=== PATIENT | female | born 1990 | race Two or more races ===

== ENCOUNTER 2017-09-22 16:13 | Outpatient (CLI) | payer MEDICAID | END 2017-09-22 18:35 | disposition home or self-care (01) | LOC: OBT 16:13 → L-D 16:14 → OBT 18:35 | DX: O62.9 Abnormality of forces of labor, unspecified (principal); Z3A.37 37 weeks gestation of pregnancy | CPT/HCPCS: 76818 ==

== ENCOUNTER 2017-10-14 22:39 | Inpatient (IN) | payer MEDICAID ==
[2017-10-14] MEDS ORDERED: LACTATED RINGER'S 1,000 ML IV ×2 (23:53)
[2017-10-15] MEDS ORDERED: BUTORPHANOL 2 MG INJ IV
[2017-10-15] MEDS ORDERED: BUTORPHANOL 1 MG INJ IV
[2017-10-15] MEDS ORDERED: LIDOCAINE 1% (MPF) 30 ML INJ INJ
[2017-10-15] MEDS: LACTATED RINGER'S 1,000 ML IV ×4 (00:44→10:52)
[2017-10-15 00:56] LABS: WHITE BLOOD COUNT 10.6 10^3/ul (4.8-10.8)
[2017-10-15 00:56] LABS: ADD MAN DIFF? NO; BASOPHIL # 0.1 10^3/ul (0.0-0.1); BASOPHILS % 0.7 % (0.0-2.0); EOSINOPHILS # 0.1 10^3/ul (0.0-0.5); EOSINOPHILS % 0.8 % (0.0-7.0); HEMATOCRIT 40.4 % (37.0-47.0); HEMOGLOBIN 14.1 g/dl (12.0-16.0); LYMPHOCYTES # 2.1 10^3/ul (0.8-2.9); LYMPHOCYTES % 19.7 % (15.0-51.0); MEAN CORPUSCULAR HEMOGLOBIN 29.2 pg (29.0-33.0); MEAN CORPUSCULAR HGB CONC 34.9 g/dl (32.0-37.0); MEAN CORPUSCULAR VOLUME 83.6 fl (82.0-101.0); MEAN PLATELET VOLUME 11.9 fl (7.4-10.4); MONOCYTE # 0.9 10^3/ul (0.3-0.9); MONOCYTES % 8.9 % (0.0-11.0); NEUTROPHIL # 7.2 10^3/ul (1.6-7.5); NEUTROPHILS % 67.7 % (39.0-77.0); PLATELET COUNT 185 10^3/UL (140-415); RED BLOOD COUNT 4.83 10^6/ul (4.20-5.40); RED CELL DISTRIBUTION WIDTH 13.9 % (11.5-14.5)
[2017-10-15 01:15] LABS: INR 0.97
[2017-10-15 01:16] LABS: PARTIAL THROMBOPLASTIN TIME 30.1 Sec (25.0-35.0)
[2017-10-15 01:47] LABS: HEPATITIS B SURFACE ANTIGEN NEGATIVE (NEGATIVE)
[2017-10-15] MEDS ORDERED: FENTAnyl 2MCG/ML-ROPIV 0.2% 100 ML (04:39)
[2017-10-15] MEDS ORDERED: DIPHENHYDRAMINE 50 MG INJ IV (05:00)
[2017-10-15] MEDS ORDERED: HYDROmorphONE 0.5 MG/0.5 ML SYG IV ×2 (05:00)
[2017-10-15] MEDS ORDERED: NALOXONE (0.4 MG/ML) INJ IV (05:00)
[2017-10-15] MEDS ORDERED: KETOROLAC 30 MG INJ IV (05:00)
[2017-10-15] MEDS ORDERED: ZOLPIDEM 5 MG TAB PO ×2 (05:00→19:00)
[2017-10-15] MEDS ORDERED: ACETAMINOPHEN 500 MG TAB PO (05:00)
[2017-10-15] MEDS ORDERED: ONDANSETRON 4 MG INJ IV (05:00)
[2017-10-15] MEDS: OXYTOCIN 30 UNITS/LR 500 ML IV ×4 (07:11→19:00)
[2017-10-15 12:59] LABS: HIV 1&2 ANTIBODY NEGATIVE (NEGATIVE)
[2017-10-15] MEDS: FENTAnyl 2MCG/ML-ROPIV 0.2% 100 ML BAG EPI (13:32)
[2017-10-15] MEDS: HYDROCODONE/APAP (5/325) TAB PO (16:20)
[2017-10-15 17:28] LABS: RAPID PLASMA REAGIN NONREACTIVE (NR)
[2017-10-15] MEDS: LACTATED RINGER'S 1,000 ML IV* (18:34)
[2017-10-15] MEDS ORDERED: DIPHENHYDRAMINE 25 MG CAP PO (19:00)
[2017-10-15] MEDS ORDERED: OXYTOCIN 30 UNITS/LR 500 ML IV ×2 (19:00)
[2017-10-15] MEDS ORDERED: ACETAMINOPHEN 325 MG TAB PO (19:00)
[2017-10-15] MEDS ORDERED: MAGNESIUM HYDROXIDE 30ML CUP PO (19:00)
[2017-10-15] MEDS ORDERED: MISOPROSTOL 200 MCG TAB PR ×2 (19:00)
[2017-10-15] MEDS ORDERED: SENNA/DOCUSATE NA (8.6MG/50MG) TAB PO (19:00)
[2017-10-15] MEDS ORDERED: CARBOPROST 250 MCG INJ IM ×2 (19:00)
[2017-10-15] MEDS ORDERED: METHYLERGONOVINE 0.2 MG INJ IM ×2 (19:00)
[2017-10-15] MEDS: LANOLIN 7 GM TUBE TOP (19:01)
[2017-10-15] MEDS: WITCH HAZEL/GLYCERIN PAD PR (19:01)
[2017-10-15] MEDS: BENZOCAINE 20% 56 ML SPRAY TOP (19:01)
[2017-10-15] MEDS: IBUPROFEN 800 MG TAB PO (23:35)
[2017-10-16] MEDS: LACTATED RINGER'S 1,000 ML IV* (02:34)
[2017-10-16] MEDS: IBUPROFEN 800 MG TAB PO ×3 (05:38→18:00)
[2017-10-16 08:52] LABS: ADD MAN DIFF? NO
[2017-10-16 08:59] LABS: BASOPHILS % 0.2 % (0.0-2.0); EOSINOPHILS # 0.1 10^3/ul (0.0-0.5); EOSINOPHILS % 0.3 % (0.0-7.0); HEMATOCRIT 37.4 % (37.0-47.0); HEMOGLOBIN 12.6 g/dl (12.0-16.0); LYMPHOCYTES # 1.5 10^3/ul (0.8-2.9); LYMPHOCYTES % 8.6 % (15.0-51.0); MEAN CORPUSCULAR HEMOGLOBIN 28.6 pg (29.0-33.0); MEAN CORPUSCULAR HGB CONC 33.7 g/dl (32.0-37.0); MEAN CORPUSCULAR VOLUME 84.8 fl (82.0-101.0); MEAN PLATELET VOLUME 11.9 fl (7.4-10.4); MONOCYTE # 1.1 10^3/ul (0.3-0.9); MONOCYTES % 6.4 % (0.0-11.0); NEUTROPHIL # 14.2 10^3/ul (1.6-7.5); NEUTROPHILS % 83.8 % (39.0-77.0); PLATELET COUNT 137 10^3/UL (140-415); RED BLOOD COUNT 4.41 10^6/ul (4.20-5.40); RED CELL DISTRIBUTION WIDTH 14.2 % (11.5-14.5)
[2017-10-16 08:59] LABS: WHITE BLOOD COUNT 16.9 10^3/ul (4.8-10.8)
[2017-10-16] MEDS: HYDROCODONE/APAP (5/325) TAB PO ×2 (14:58→20:24)
[2017-10-17] MEDS: IBUPROFEN 800 MG TAB PO ×4 (01:30→13:24)
[2017-10-17] MEDS: VARICELLA VACCINE LIVE/PF 1,350 UNIT/0.5 ML ML SC* (09:00)
[2017-10-17] MEDS: DIPHTH/TET/ACEL PERTUSS (ADULT) 0.5 ML VIAL IM* (09:00)
[2017-10-17] MEDS: MEASLES,MUMPS,RUBELLA VACCINE INJ SC* (09:00)
[2017-10-17 10:13] LABS: ADD MAN DIFF? NO
[2017-10-17 10:17] LABS: WHITE BLOOD COUNT 14.7 10^3/ul (4.8-10.8)
[2017-10-17 10:17] LABS: BASOPHILS % 0.2 % (0.0-2.0); EOSINOPHILS # 0.2 10^3/ul (0.0-0.5); EOSINOPHILS % 1.4 % (0.0-7.0); HEMATOCRIT 34.9 % (37.0-47.0); HEMOGLOBIN 12.1 g/dl (12.0-16.0); LYMPHOCYTES # 1.5 10^3/ul (0.8-2.9); LYMPHOCYTES % 10.4 % (15.0-51.0); MEAN CORPUSCULAR HEMOGLOBIN 29.4 pg (29.0-33.0); MEAN CORPUSCULAR HGB CONC 34.7 g/dl (32.0-37.0); MEAN CORPUSCULAR VOLUME 84.7 fl (82.0-101.0); MEAN PLATELET VOLUME 11.7 fl (7.4-10.4); MONOCYTE # 0.9 10^3/ul (0.3-0.9); MONOCYTES % 6.3 % (0.0-11.0); NEUTROPHIL # 11.8 10^3/ul (1.6-7.5); NEUTROPHILS % 80.3 % (39.0-77.0); PLATELET COUNT 155 10^3/UL (140-415); RED BLOOD COUNT 4.12 10^6/ul (4.20-5.40); RED CELL DISTRIBUTION WIDTH 14.2 % (11.5-14.5)
[2017-10-17] MEDS: LANOLIN 7 GM TUBE TOP (10:17)
[2017-10-17] MEDS: BENZOCAINE 20% 56 ML SPRAY TOP (10:18)
[2017-10-17] MEDS: WITCH HAZEL/GLYCERIN PAD PR (10:18)
[2017-10-17] MEDS: HYDROCODONE/APAP (5/325) TAB PO (13:23)
[2017-10-19 11:57] LABS: RUBELLA ANTIBODY - IGM <20.00 AU/mL
== END 2017-10-17 15:25 | disposition home or self-care (01) | DRG 775 ==
LOC: OBT 22:39 → L-D 22:41 → PP1 10-15 18:11
PROVIDERS: Obstetrics & Gynecology
PROC: 10E0XZZ Delivery of Products of Conception, External Approach (ICD-10-PCS; principal; 2017-10-15)
DX: O80 Encounter for full-term uncomplicated delivery (principal); Z3A.39 39 weeks gestation of pregnancy; Z37.0 Single live birth
CPT/HCPCS: 62319; 85025; 85610; 85730; 86592; 86703; 86762; 86850; 86900; 86901; 87340

== ENCOUNTER 2018-09-07 20:43 | Emergency (ER) | payer MEDICAID ==
[2018-09-08] MEDS: KETOROLAC 30 MG INJ IM (01:19)
== END 2018-09-08 02:35 | disposition home or self-care (01) ==
LOC: FTE 20:43
DX: J40 Bronchitis, not specified as acute or chronic (principal)
CPT/HCPCS: 71046; 81025; 96372; 99284-25